=== PATIENT | female | born 1995 ===

== ENCOUNTER 2019-11-07 11:38 | Emergency (ER) | payer OTHER ==
[~2019-11-07] VITALS: Ht 157.5 cm; Wt 77.1 kg
[2019-11-07 12:46] LABS: Influenza A Negative (NEGATIVE); Influenza B Negative (NEGATIVE)
[2019-11-07] MEDS ORDERED: METF500 (13:22)
[2019-11-07] MEDS ORDERED: GABA300 (13:22)
[2019-11-07] MEDS ORDERED: Tamiflu75 MG PO (13:26)
== END 2019-11-07 13:29 | disposition home or self-care (01) ==
LOC: ER 11:38
PROVIDERS: Physician Assistant
DX: R05 Cough (principal); E11.9 Type 2 diabetes mellitus without complications
CPT/HCPCS: 87804; 99283

== ENCOUNTER 2020-07-08 18:52 | Inpatient (IN) | payer OTHER ==
[~2020-07-08] VITALS: Ht 157.5 cm; Wt 96.1 kg
[~2020-07-08 18:52] MED LIST: BASAGLAR K100 UNIT/2 SC; CEFP200 PO; GABA300; METF500; METF500 PO; Tamiflu75 MG PO
[2020-07-08 19:43] LABS: BASOPHILS ABSOLUTE AUTO 0.09 K/mm3 (0.00-0.23); BASOPHILS PERCENT AUTO 1 % (0-2); EOSINOPHILS ABSOLUTE AUTO 0.15 K/mm3 (0.00-0.68); EOSINOPHILS PERCENT AUTO 1 % (0-6); Hematocrit 39.2 % (33.0-51.0); Hemoglobin 14.7 g/dL (11.5-16.0); IMMATURE GRAN ABSOLUTE AUTO 0.05 K/mm3 (0.00-0.10); IMMATURE GRAN PERCENT AUTO 0 % (0-1); LYMPHOCYTES PERCENT AUTO 27 % (21-46); MONOCYTES ABSOLUTE AUTO 0.85 K/mm3 (0.16-1.47); MONOCYTES PERCENT AUTO 5 % (4-13); Mean Corpuscular HGB 32.1 pg (26.0-34.0); Mean Corpuscular HGB Conc 37.5 g/dL (31.5-36.5); Mean Corpuscular Volume 86 fL (80-100); Mean Platelet Volume 9.7 fL (9.1-12.4); NEUTROPHILS ABSOLUTE AUTO 10.69 K/mm3 (1.96-9.15); NEUTROPHILS PERCENT AUTO 66 % (41-73); Platelet Count 493 K/mm3 (150-400); RDW Coefficient Variation 12.6 % (11.7-14.2); Red Blood Cell Count 4.58 M/mm3 (3.80-5.20); White Blood Cell Count 16.13 K/mm3 (4.00-11.30)
[2020-07-08 22:14] LABS: Albumin, Blood 3.9 g/dL (3.4-5.0); Albumin/Globulin Ratio 0.8 (0.8-1.8); Alk Phos 56 U/L (50-136); Anion Gap 13 mmol/L (6-16); Aspartate Aminotrans (AST/SGOT 50 U/L (12-37); Blood Urea Nitrogen 9 mg/dL (8-24); Bun/Creatinine Ratio 20.1 (12.0-20.0); CO2, Blood 21 mmol/L (21-32); Chloride, Blood 98 mmol/L (98-108); Creatinine, Blood 0.45 mg/dL (0.40-1.00); Globulin, Blood 4.6 g/dL (2.2-4.0); Glomerular Filtration Rate >60 (60-); Glucose, Blood 470 mg/dL (70-99); Potassium, Blood 4.4 mmol/L (3.5-5.5); Sodium, Blood 132 mmol/L (136-145); Total Protein, Blood 8.5 g/dL (6.4-8.2)
[2020-07-08 22:21] LABS: Source, Urine Voided
[2020-07-08 22:23] LABS: Appearance, Urine Clear (Clear); Bilirubin, Urine Neg (Neg); Blood, Urine 1+ (Neg); Color, Urine Yellow (P-Yellow); Glucose Qualitative, Urine 4+ (Neg); Ketones, Urine Neg (Neg); Leukocyte Esterase, Urine Neg (Neg); Nitrite, Urine Neg (Neg); Protein, Urine 2+ (Neg); Urobilinogen, Urine NORM (Normal)
[2020-07-08 22:29] LABS: Bacteria Many /hpf; Red Blood Cells, Urine 0-2 /hpf (0-2); Squamous Epithelial Cells Few /hpf (Few); White Blood Cells, Urine 0-2 /hpf (0-5)
[2020-07-08 22:36] LABS: Alanine Aminotransfer (ALT/SGP 60 U/L (12-78); Bilirubin, Total 0.4 mg/dL (0.1-1.0)
--- NOTE | 2020-07-09 01:00 | NUR ---
ADMISSION NOTE RECEIVED HAND OFF FROM Jewell DIEZ RN USING SBAR. TRANSPORTED TO ROOM 226 VIA STRETCHER. TRANSFERED SELF TO BED WITH STANDBY ASSIST. AAO X3, [place], FOLLOWS ALL COMMANDS. ORIENTED TO ROOM, CALL SYSTEM, AND POC, VOICES UNDERSTANDING. INSTRUCTED THAT SHE IS NPO AT THIS TIME. ORAL CARE SUPLIES PROVIDED TO HER. RESPIRATIONS EVEN AND UNLABOERED ON ROOM AIR. LUNG SOUNDS CLEAR BILATERALLY. ABDOMEN SOFT AND NONDISTENDED. BOWEL SOUNDS PRESENT IN ALL QUADS. LEFT AC 20G SL PIV IS PATENT, FLUSHING WITH EASE. NS STARTED AT 75ML/HR, TOLERATING WELL. C/O PAIN OF 5/10 AFTER ARRIVAL, STATES PAIN MEDS IN ER WERE EFFECTIVE, BUT DIDN'T LAST LONG. GIVEN DILAUDID 1MG SIVP, TOLERATED WELL, REPORTS CURRENT PAIN LEVEL AT 2/10. INSTRUCTED TO CALL FOR ASSISTANCE OVER THE NEXT 30MIN IF NEEDED TO GET OOB FOR SAFETY, VOICES UNDERSTANDING. DENIES PAIN DISCOMFORT, OR FURTHER NEEDS AT THIS TIME. ASMISSION ASSESSMENT IN PROGRESS. SAFETY MEAURES IN PLACE. WILL CONTINUE TO MONITOR.
[2020-07-09 04:23] LABS: BASOPHILS ABSOLUTE AUTO 0.07 K/mm3 (0.00-0.23); BASOPHILS PERCENT AUTO 1 % (0-2); EOSINOPHILS ABSOLUTE AUTO 0.17 K/mm3 (0.00-0.68); EOSINOPHILS PERCENT AUTO 1 % (0-6); Hemoglobin 12.7 g/dL (11.5-16.0); IMMATURE GRAN ABSOLUTE AUTO 0.03 K/mm3 (0.00-0.10); IMMATURE GRAN PERCENT AUTO 0 % (0-1); LYMPHOCYTES ABSOLUTE AUTO 4.92 K/mm3 (0.84-5.20); LYMPHOCYTES PERCENT AUTO 32 % (21-46); MONOCYTES ABSOLUTE AUTO 0.84 K/mm3 (0.16-1.47); MONOCYTES PERCENT AUTO 5 % (4-13); Mean Corpuscular HGB 30.5 pg (26.0-34.0); Mean Corpuscular HGB Conc 35.3 g/dL (31.5-36.5); Mean Corpuscular Volume 87 fL (80-100); Mean Platelet Volume 9.3 fL (9.1-12.4); NEUTROPHILS ABSOLUTE AUTO 9.51 K/mm3 (1.96-9.15); NEUTROPHILS PERCENT AUTO 61 % (41-73); Platelet Count 431 K/mm3 (150-400); RDW Coefficient Variation 12.4 % (11.7-14.2); RDW Standard Deviation 39.2 fL (35.1-46.3); Red Blood Cell Count 4.16 M/mm3 (3.80-5.20); White Blood Cell Count 15.54 K/mm3 (4.00-11.30)
[2020-07-09 05:03] LABS: Alanine Aminotransfer (ALT/SGP 170 U/L (12-78); Albumin, Blood 3.1 g/dL (3.4-5.0); Albumin/Globulin Ratio 0.4 (0.8-1.8); Alk Phos 46 U/L (50-136); Anion Gap 8 mmol/L (6-16); Bilirubin, Total 0.7 mg/dL (0.1-1.0); Blood Urea Nitrogen 6 mg/dL (8-24); Bun/Creatinine Ratio 19.7 (12.0-20.0); CO2, Blood 24 mmol/L (21-32); Calcium, Blood 8.4 mg/dL (8.5-10.1); Chloride, Blood 97 mmol/L (98-108); Creatinine, Blood 0.31 mg/dL (0.40-1.00); Globulin, Blood 7.6 g/dL (2.2-4.0); Glomerular Filtration Rate >60 (60-); Glucose, Blood 356 mg/dL (70-99); Potassium, Blood 4.2 mmol/L (3.5-5.5); Sodium, Blood 129 mmol/L (136-145)
[2020-07-09 05:04] LABS: Total Protein, Blood 10.7 g/dL (6.4-8.2)
[2020-07-09 05:14] LABS: Aspartate Aminotrans (AST/SGOT 106 U/L (12-37)
--- NOTE | 2020-07-09 05:34 | NUR ---
SHIFT SUMMARY HAS NOT RESTED D/T WORRY ABOUT SURGERY AND DIABETES CARE OUTSIDE OF HER NORMAL. NURSING REITERATED CARE PLACE AND THAT WE WOULD BE WATCHING HER GLUCOSE LEVELS CLOSELY ESPECIALLY SINCE SHE IS CURRENTLY NPO. CONTACTE DR ORTIZ FOR DIABETIC MANAGEMENT ORDERS AND WAS ORDERED TO PLACE A HOSPITALIST CONSULT. CONSULT CALLED TO DR. SALCEDO WHO STATED THAT SHE WOULD COME SEE PT. NO FURTHER CHANGES NOTED TO PT SINCE ADMIT. DENIES PAIN, DISCOMFORT, OR FURTHER NEEDS AT THIS TIME. SAFETY MEASURES IN PLACE. WILL CONTINUE TO MONITOR AND GIVE HAND OFF TO ONCOMING SHIFT USING SBAR DURING BEDSIDE REPORT.
--- NOTE | 2020-07-09 09:49 | NUR ---
PT TO OR
--- NOTE | 2020-07-09 10:04 | NUR ---
INTO SDS VIA GURNERY FROM SURG FLOOR. History, Chart, Medications and Allergies reviewed before start of procedure.Patient confirms NPO status and agrees with scheduled surgery. Surgical site prepped with 2% Chlorhexidine cloth wipe. Lungs clear T/O to Auscultation.
--- NOTE | 2020-07-09 12:05 | NUR ---
PT ABLE TO FOLLOW COMMANDS, TAKE DEEP BREATHS. PT PLACED ON NC AT 4L. BIOX AT 95%.
--- NOTE | 2020-07-09 15:26 | NUR ---
SUMMARY S/P LAP ROHINI THIS SHIFT. MEDICATED PT PER ORDERS FOR 04/17 PAIN WHICH BROUGHT DOWN TO 02/15. PT AMBULATED TO RESTROOM AND VOIDED. NOW BACK TO BED. SLOWLY EATING LUNCH. VSS. TITRATED PT OFF TO . COVERED CBG OF 305 AT LUNCH PER NANCIE. S.O. AT BEDSIDE. CALL LIGHT IN REACH.
--- NOTE | 2020-07-09 16:03 | NUR ---
ASSUMED PT CARE AT THIS TIME
[2020-07-10 04:07] LABS: BASOPHILS ABSOLUTE AUTO 0.03 K/mm3 (0.00-0.23); BASOPHILS PERCENT AUTO 0 % (0-2); EOSINOPHILS PERCENT AUTO 0 % (0-6); Hematocrit 33.9 % (33.0-51.0); Hemoglobin 11.6 g/dL (11.5-16.0); IMMATURE GRAN ABSOLUTE AUTO 0.07 K/mm3 (0.00-0.10); IMMATURE GRAN PERCENT AUTO 0 % (0-1); LYMPHOCYTES ABSOLUTE AUTO 2.11 K/mm3 (0.84-5.20); LYMPHOCYTES PERCENT AUTO 13 % (21-46); MONOCYTES ABSOLUTE AUTO 0.78 K/mm3 (0.16-1.47); MONOCYTES PERCENT AUTO 5 % (4-13); Mean Corpuscular HGB 30.1 pg (26.0-34.0); Mean Corpuscular HGB Conc 34.2 g/dL (31.5-36.5); Mean Corpuscular Volume 88 fL (80-100); Mean Platelet Volume 9.2 fL (9.1-12.4); NEUTROPHILS ABSOLUTE AUTO 13.67 K/mm3 (1.96-9.15); NEUTROPHILS PERCENT AUTO 82 % (41-73); Platelet Count 346 K/mm3 (150-400); RDW Coefficient Variation 12.6 % (11.7-14.2); RDW Standard Deviation 40.6 fL (35.1-46.3); Red Blood Cell Count 3.85 M/mm3 (3.80-5.20); White Blood Cell Count 16.66 K/mm3 (4.00-11.30)
[2020-07-10 04:29] LABS: Alanine Aminotransfer (ALT/SGP 103 U/L (12-78); Albumin/Globulin Ratio 0.7 (0.8-1.8); Alk Phos 50 U/L (50-136); Anion Gap 7 mmol/L (6-16); Aspartate Aminotrans (AST/SGOT 111 U/L (12-37); Bilirubin, Total 0.5 mg/dL (0.1-1.0); Blood Urea Nitrogen 9 mg/dL (8-24); Bun/Creatinine Ratio 17.3 (12.0-20.0); CO2, Blood 25 mmol/L (21-32); Calcium, Blood 8.7 mg/dL (8.5-10.1); Chloride, Blood 103 mmol/L (98-108); Creatinine, Blood 0.52 mg/dL (0.40-1.00); Globulin, Blood 4.5 g/dL (2.2-4.0); Glomerular Filtration Rate >60 (60-); Glucose, Blood 259 mg/dL (70-99); Potassium, Blood 3.9 mmol/L (3.5-5.5); Sodium, Blood 135 mmol/L (136-145); Total Protein, Blood 7.5 g/dL (6.4-8.2)
--- NOTE | 2020-07-10 06:33 | NUR ---
POD 1 S/P LAP ROHINI. PT VSS T/O NIGHT. DRESSINGS CDI, SITES SOFT TO PALP. PT HAD MILD NAUSEA REALY IN NIGHT, REPORTS RESOLVED THIS AM. PT ELLA REG PO, STATES NO FLATUS YET, IS VOIDING URINE W/O DIFFICULTY. PAIN MGD W/TORADOL AND 1 PERCOCET W/REP RELIEF. CBG TRENDING DOWN. IVF CONT PER ORDERS. PT AMB INDEP IN ROOM, ELLA WELL.
[2020-07-10] MEDS ORDERED: OXYC5 PO (10:29)
[2020-07-10] MEDS ORDERED: ONDA4 PO (10:29)
[2020-07-10] MEDS ORDERED: KEFLEX500 MG PO (10:44)
--- NOTE | 2020-07-10 11:05 | NUR ---
DISCHARGE NOTE: WENT OVER THE DISCHARGE INSTRUCTIONS WITH THE PATIENT. SHE VERBALIZED HER UNDERSTANDING. GAVE HER THE ZOFRAN AND OXYCODONE PERSCRIPTIONS IN THE PACKET. HER VITALS WERE STABLE, ON ROOM AIR, AND WAS ABLE TO WALK OUT OF THE BUILDING WITH HER S/O. SHE HAD ALL OF HER PERSONAL BELONGINGS WITH HER. IV D/C'D. LEFT WITH S/O.
--- NOTE | 2020-07-10 13:24 | NUR ---
Pt. is doing well and may go home today , prayed for her .
== END 2020-07-10 11:00 | disposition home or self-care (01) | DRG 418 ==
LOC: ER 18:52 → SURS 18:53
PROVIDERS: Emergency Medicine; Internal Medicine; Physician Assistant; ADMIT Surgery
PROC: BF131ZZ Fluoroscopy of Gallbladder and Bile Ducts using Low Osmolar Contrast (ICD-10-PCS; 2020-07-09)
PROC: 0FT44ZZ Resection of Gallbladder, Percutaneous Endoscopic Approach (ICD-10-PCS; principal; 2020-07-09 10:45)
DX: K85.10 Biliary acute pancreatitis without necrosis or infection (principal); E87.1 Hypo-osmolality and hyponatremia; N39.0 Urinary tract infection, site not specified; R65.10 Systemic inflammatory response syndrome (SIRS) of non-infectious origin without acute organ dysfunction; Z20.828 Contact with and (suspected) exposure to other viral communicable diseases; Z79.4 Long term (current) use of insulin; E11.65 Type 2 diabetes mellitus with hyperglycemia; E66.9 Obesity, unspecified; Z68.34 Body mass index [BMI] 34.0-34.9, adult; B95.1 Streptococcus, group B, as the cause of diseases classified elsewhere
CPT/HCPCS: 36415; 74300; 76705; 80053; 81001; 81025; 82947; 83690; 85025; 87077; 87086; 87147; 87186; 88304; 96374-59; 96375; 99285-25; A9270-GY; C1729; C1894; J0690; J0696; J1100; J1170; J1815; J1885; J2250; J2405; J2543; J2704; J2710; J3010; J7030; J7120; U0002

== ENCOUNTER 2020-08-03 17:09 | Inpatient (IN) | payer OTHER ==
[~2020-08-03] VITALS: Ht 157.5 cm; Wt 74.3 kg
[~2020-08-03 17:09] MED LIST changes: +KEFLEX500 MG PO; +ONDA4 PO; +OXYC5 PO
[2020-08-03 17:40] LABS: BASOPHILS ABSOLUTE AUTO 0.07 K/mm3 (0.00-0.23); BASOPHILS PERCENT AUTO 1 % (0-2); EOSINOPHILS ABSOLUTE AUTO 0.24 K/mm3 (0.00-0.68); EOSINOPHILS PERCENT AUTO 2 % (0-6); Hemoglobin 14.3 g/dL (11.5-16.0); IMMATURE GRAN ABSOLUTE AUTO 0.05 K/mm3 (0.00-0.10); IMMATURE GRAN PERCENT AUTO 0 % (0-1); LYMPHOCYTES ABSOLUTE AUTO 4.14 K/mm3 (0.84-5.20); LYMPHOCYTES PERCENT AUTO 27 % (21-46); MONOCYTES ABSOLUTE AUTO 0.81 K/mm3 (0.16-1.47); MONOCYTES PERCENT AUTO 5 % (4-13); Mean Corpuscular HGB 31.1 pg (26.0-34.0); Mean Corpuscular HGB Conc 35.8 g/dL (31.5-36.5); Mean Corpuscular Volume 87 fL (80-100); Mean Platelet Volume 9.5 fL (9.1-12.4); NEUTROPHILS ABSOLUTE AUTO 9.84 K/mm3 (1.96-9.15); NEUTROPHILS PERCENT AUTO 65 % (41-73); Platelet Count 423 K/mm3 (150-400); RDW Coefficient Variation 11.9 % (11.7-14.2); RDW Standard Deviation 38.5 fL (35.1-46.3); White Blood Cell Count 15.15 K/mm3 (4.00-11.30)
[2020-08-03] MEDS ORDERED: GABA300 PO (18:12)
[2020-08-03] MEDS ORDERED: BASAGLAR K100 UNIT/5 SC (18:12)
[2020-08-03] MEDS ORDERED: METF500C PO (18:13)
[2020-08-03 18:24] LABS: Alanine Aminotransfer (ALT/SGP 90 U/L (12-78); Albumin, Blood 3.5 g/dL (3.4-5.0); Albumin/Globulin Ratio 0.7 (0.8-1.8); Alk Phos 67 U/L (50-136); Anion Gap 10 mmol/L (6-16); Aspartate Aminotrans (AST/SGOT 77 U/L (12-37); Bilirubin, Total 0.5 mg/dL (0.1-1.0); Blood Urea Nitrogen 8 mg/dL (8-24); CO2, Blood 22 mmol/L (21-32); Calcium, Blood 8.6 mg/dL (8.5-10.1); Chloride, Blood 99 mmol/L (98-108); Creatinine, Blood 0.33 mg/dL (0.40-1.00); Globulin, Blood 5.3 g/dL (2.2-4.0); Glomerular Filtration Rate >60 (60-); Glucose, Blood 458 mg/dL (70-99); Potassium, Blood 4.2 mmol/L (3.5-5.5); Sodium, Blood 131 mmol/L (136-145); Total Protein, Blood 8.8 g/dL (6.4-8.2)
[2020-08-03 18:46] LABS: Source, Urine Clean Catch
[2020-08-03 19:11] LABS: Appearance, Urine Clear (Clear); Bilirubin, Urine Neg (Neg); Blood, Urine Neg (Neg); Color, Urine Yellow (P-Yellow); Glucose Qualitative, Urine 4+ (Neg); Ketones, Urine Neg (Neg); Leukocyte Esterase, Urine Neg (Neg); Nitrite, Urine Neg (Neg); Protein, Urine 2+ (Neg); Urobilinogen, Urine NORM (Normal)
[2020-08-03 19:24] LABS: Bacteria Few /hpf; Red Blood Cells, Urine 0-2 /hpf (0-2); Squamous Epithelial Cells Few /hpf (Few); White Blood Cells, Urine 0-2 /hpf (0-5)
--- NOTE | 2020-08-04 03:46 | NUR ---
24 YR OLD FEMALE ADMITTED TO FLOOR FROM THE ED EARLIER WITH DX OF ACUTE PANCREATITIS POST ROHINI ABOUT 3 WEEKS AGO. ACCU CHECKS Q 4 HRS TO MONITOR BLOOD SUGAR LEVELS. IVF OF NS CONTINUES. NPO. DILAUDID FOR PAIN AND ZOFRAN FOR NAUSEA/EMESIS - SEE MAR FOR DETAILS. CALL LIGHT IN REACH
[2020-08-04 04:45] LABS: BASOPHILS ABSOLUTE AUTO 0.05 K/mm3 (0.00-0.23); BASOPHILS PERCENT AUTO 0 % (0-2); EOSINOPHILS PERCENT AUTO 0 % (0-6); Hemoglobin 14.2 g/dL (11.5-16.0); IMMATURE GRAN ABSOLUTE AUTO 0.08 K/mm3 (0.00-0.10); IMMATURE GRAN PERCENT AUTO 0 % (0-1); LYMPHOCYTES ABSOLUTE AUTO 1.45 K/mm3 (0.84-5.20); LYMPHOCYTES PERCENT AUTO 7 % (21-46); MONOCYTES ABSOLUTE AUTO 1.14 K/mm3 (0.16-1.47); MONOCYTES PERCENT AUTO 6 % (4-13); Mean Corpuscular HGB 29.9 pg (26.0-34.0); Mean Corpuscular HGB Conc 33.8 g/dL (31.5-36.5); Mean Corpuscular Volume 88 fL (80-100); Mean Platelet Volume 9.6 fL (9.1-12.4); NEUTROPHILS ABSOLUTE AUTO 16.92 K/mm3 (1.96-9.15); NEUTROPHILS PERCENT AUTO 86 % (41-73); Platelet Count 431 K/mm3 (150-400); RDW Coefficient Variation 12.3 % (11.7-14.2); RDW Standard Deviation 40.1 fL (35.1-46.3); Red Blood Cell Count 4.75 M/mm3 (3.80-5.20); White Blood Cell Count 19.64 K/mm3 (4.00-11.30)
--- NOTE | 2020-08-04 05:00 | NUR ---
IV SITE HAD INFILTRATED ABOUT THE TIME PT RECEIVED DILAUDID. PAIN CONTINUED, PT VOICED MED NOT EFFECTIVE ALSO CBG 416. ORDER WAS GIVE 12 UNITS HUMULIN INSULIN AND CALL MD. INSULIN GIVEN AND MD NOTIFIED OF BOTH (PAIN AND INSULIN). MD ORDERED TO GIVE ANOTHER ONE TIME DOSE OF DILAUDID 1 MF IV AND TO GIVE THE LANTUS INSULIN DOSE ORDERED AT 2100. DILAUDID GIVEN, PT VOICED PAIN RELIEF. IVF OF NS RESTARTED, CALL LIGHT IN REACH
[2020-08-04 05:11] LABS: Alanine Aminotransfer (ALT/SGP 98 U/L (12-78); Albumin, Blood 3.4 g/dL (3.4-5.0); Albumin/Globulin Ratio 0.8 (0.8-1.8); Alk Phos 59 U/L (50-136); Anion Gap 9 mmol/L (6-16); Aspartate Aminotrans (AST/SGOT 52 U/L (12-37); Bilirubin, Total 0.6 mg/dL (0.1-1.0); Blood Urea Nitrogen 7 mg/dL (8-24); Bun/Creatinine Ratio 14.1 (12.0-20.0); CO2, Blood 23 mmol/L (21-32); Calcium, Blood 7.4 mg/dL (8.5-10.1); Chloride, Blood 102 mmol/L (98-108); Globulin, Blood 4.2 g/dL (2.2-4.0); Glomerular Filtration Rate >60 (60-); Glucose, Blood 365 mg/dL (70-99); Potassium, Blood 4.2 mmol/L (3.5-5.5); Sodium, Blood 134 mmol/L (136-145); Total Protein, Blood 7.6 g/dL (6.4-8.2)
[2020-08-04 12:54] LABS: Triglycerides 1785 mg/dL (30-140)
--- NOTE | 2020-08-04 15:47 | NUR ---
SHIFT SUMMARY PT IS A/O X 4. SHE HAS ONGOING ABDOMINAL PAIN AND HAS BEEN MEDICATED ORDERED. SHE ALSO HAS HAD NAUSEA THROUGHOUT THE DAY AND HAS BEEN MEDICATED ORDERED. CBGS HAVE BEEN CHECKED Q4 AND INSULIN HAS BEEN GIVEN PER SLIDING SCALE. MRI WAS COMPLETED THIS MORNING PER THE DOCTOR AND PT IS AWAITING THE RESULTS. HER S.O. HAS BEEN AT THE BEDSIDE ALL DAY WITH HER. PT IS UP TO THE BATHROOM IND. SHE IS ABLE TO MAKE HER NEEDS KNOWN AND CALLS FREQUENTLY FOR ASSISTANCE. SHE HAS HER CALL LIGHT IN REACH.
--- NOTE | 2020-08-05 04:41 | NUR ---
Pt alertness: When doing morning vs I went and pushed send and then I noticed it said lethargic which was wrong. Pt was very alert. View score only be 4 not 5 and RN was aware.
--- NOTE | 2020-08-05 06:37 | NUR ---
BOULEVARD GLASSWARE REPLACER SUMMARY Patient awake most of night. Quite painful in upper quadrants. Tolerating NS running continuously at 200 ml/hr. Tearful multiple times with pain. 1mg Dilaudid worked effectively given every 2-3 hours. Very pleasant and cooperative with care
--- NOTE | 2020-08-05 08:43 | NUR ---
REC'D REPORT FROM GILBERTO NARVAEZ ON MEDICAL AND WILL BE ASSUMING CARE OF PT ONCE THEY ARRIVE TO UNIT. WILL START INSULIN GTT ONCE SHE ARRIVES.
--- NOTE | 2020-08-05 08:50 | NUR ---
PT TRANSFERRED FROM MEDICAL FLOOR VIA W/C FOR INSULIN GTT TO BRING DOWN TRIGLYCERIDES. PT 10/ PAIN IN THE LT UQ UPON ARRIVAL TO UNIT. TX'D PER ORDERS WITH DILAUDID IV. ALERT + ORIENTED X3. PT ABLE TO AMBULATE SELF, SLOWLY WITH STEADY GAIT. LUNGS ARE CLEAR T/O BILATERALLY. SP02 >90% ON RA. HR REGULAR, ST- 110-120'S. INSULIN GTT STARTED UPON ARRIVAL. WILL CONTINUE TO FOLLOW CBG'S Q1 HR WHILE ON INSULIN GTT. ABD SLIGHT DISTENDED. VERY TENDER IN LT UQ WITH RADIATION TO RUQ AT TIMES. PT REMAINS NPO, EXCEPT SM AMT OF ICE CHIPS.
--- NOTE | 2020-08-05 08:51 | NUR ---
DR CAAL GAVE ORDERS TO TRANSFER PT TO ICU. THE CHARGE NURSE WAS NOTTIFIED. THE PT WAS NOTIFIED AND AGREED TO PLAN. REPORT WAS CALLED TO HARBOR ENGINEER, SOLANGE. THE PT'S S.O. PACKED PT'S BELONGINGS AND BROUGHT THEM TO THE ICU.
--- NOTE | 2020-08-05 09:36 | NUR ---
PLACED PT ON 2L 02 VIA N/C, PT'S SATS 88-89% ON RA AFTER MEDICATING WITH DILAUDID. DISCUSSED DEEP BREATHING SEVERAL TIMES WITH PT/PTS FIANCE. HOWEVER, SP02 REMAINED >90%.
[2020-08-05 11:20] LABS: Triglycerides 568 mg/dL (30-140)
--- NOTE | 2020-08-05 14:04 | NUR ---
PT UPDATE: PT REMAINS MOSTLY UNCHANGED. CONTINUES TO NEED DILAUDID 1MG Q2HR FOR ONGOING LUQ ABD PAIN AND ZOFRAN TO CONTROL NAUSEA. PT ABLE TO CALL APPROPRIATELY FOR NEEDS AND CALL LIGHT WITHIN REACH.
--- NOTE | 2020-08-05 15:36 | NUR ---
CALLED DR CAAL, DILAUDID IV HAS NOT BEEN LASTING THE FULL 2 HRS. WILL TRY DILAUDID TIME STUDY CLERK FOR BETTER PAIN CONTROL/MANAGEMENT. WATCH FOR SEDATION. WILL START ONCE THIS RN RECEIVES DILAUDID FROM PHARMACY.
--- NOTE | 2020-08-05 17:21 | NUR ---
DR GLORIA IN TO REASSESS PT AND DIURETIC EFFECT OF LASIX. WILL KEEP PT IN ICU OVERNIGHT.
--- NOTE | 2020-08-05 17:24 | NUR ---
CALLED DR JIMENEZ TO INFORM HIM THAT PT'S IS AT THE BEDSIDE. HE WANTED TO SPEAK WITH HER ABOUT THE PT'S TX OPTIONS.
--- NOTE | 2020-08-05 19:00 | NUR ---
SHIFT SUMMARY: PT HAS CONTINUED ABD PAIN IN THE LUQ R/T PANCREATITIS, HOWEVER, IT IS MUCH BETTER MANAGED ON THE DILAUDID 0.5MG/HR PER BASAL GARAGE WORKER. PAIN IS NOW MORE CONSISTENTLY 4-5/10 COMPARED TO 8-08/17. PT ABLE TO MOVE SELF IN BED. THIS DOES INCREASE PAIN AND NAUSEA AT THESE TIMES. PT HAS HAD TO BE TX'D WITH ZOFRAN T/O SHIFT, WHICH HAS PROVEN TO BE HELPFUL IN REDUCING NAUSEA. LUNGS ARE CLEAR T/O BILATERALLY. PT HAS HAD TO HAVE 2L 02 PLACED AT TIMES SP02 WILL DECREASE TO 88% RANGE WHEN SLEEPING. HR REGULAR, ST 120'S RANGE. ABD SLIGHTY DISTENDED, SHARP/STABBING PAIN IN LT UQ T/O SHIFT, WITH GARAGE WORKER NOTED. PT OOB TO VOID IN TOILET AND SBA TO ASSIST WITH VITAL LINES. PT WITH LARGE IMPROVEMENT IN TRIGLYERIDE LEVEL THIS SHIFT AND WILL BE RECHECKED DURING NOC SHIFT. LIPASE/CBC/RENAL PANEL DUE IN AM. J
--- NOTE | 2020-08-05 19:39 | NUR ---
REPORTED OFF TO GILBERTO Barber WHOM AE NOW ASSUMING CARE OF THIS PT.
--- NOTE | 2020-08-05 19:40 | NUR ---
PT A&OX4. HEENT-NORMOCEPHALIC. LSCTA, ON 2LPM O2 NC WHILE SLEEPING. ABD SOFT, SLIGHTLY DISTENDED WITH SHARP PAIN IN LUQ. MODERATE PAIN RADIATES T/O UPPER QUADRANT. ABD PAIN IS CONSISTENTLY AROUND A 5-6 WITH THE ICE PLATFORM SUPERVISOR DILAUDID. PT REPORTS INCREASE IN PAIN WHEN UP TO THE COMMODE. BT'S HYPOACTIVE. PT ABLE TO VOID c ASSISTANCE TO THE BEDSIDE COMMODE. INSULIN GTT AT GOAL RATE OF 0.1. FLUIDS WILL BE TITRATED TO MAINTAIN CBG <200.
[2020-08-05 22:47] LABS: Triglycerides 373 mg/dL (30-140)
--- NOTE | 2020-08-06 03:55 | NUR ---
UPDATE AUDIBLE CRYING/ MOANING COMING FROM PTS ROOM. PT WRITHING IN BED, TACHYPNEIC, TACHYCARDIC, C/O SEVERE LUQ PAIN, 10/10. ATTEMPTED TO HELP PT VIA DISTRACTION AND REPOSITIONING WITH NO RESOLVE. PT MEDICATED c PRESCRIBED PAIN MEDICATIONS, PAIN DIMINISHED TO A 3/10.
[2020-08-06 04:00] LABS: Hematocrit 37.6 % (33.0-51.0); Hemoglobin 12.5 g/dL (11.5-16.0); Mean Corpuscular HGB 29.8 pg (26.0-34.0); Mean Corpuscular HGB Conc 33.2 g/dL (31.5-36.5); Mean Corpuscular Volume 90 fL (80-100); Mean Platelet Volume 9.6 fL (9.1-12.4); Platelet Count 321 K/mm3 (150-400); RDW Coefficient Variation 12.8 % (11.7-14.2); RDW Standard Deviation 42.3 fL (35.1-46.3); White Blood Cell Count 18.23 K/mm3 (4.00-11.30)
[2020-08-06 04:25] LABS: Albumin, Blood 2.2 g/dL (3.4-5.0); Anion Gap 7 mmol/L (6-16); Blood Urea Nitrogen 7 mg/dL (8-24); Bun/Creatinine Ratio 13.2 (12.0-20.0); CO2, Blood 23 mmol/L (21-32); Calcium, Blood 6.5 mg/dL (8.5-10.1); Chloride, Blood 104 mmol/L (98-108); Creatinine, Blood 0.53 mg/dL (0.40-1.00); Glomerular Filtration Rate >60 (60-); Glucose, Blood 143 mg/dL (70-99); Potassium, Blood 3.1 mmol/L (3.5-5.5); Sodium, Blood 134 mmol/L (136-145)
[2020-08-06 04:36] LABS: Phosphorus, Blood 0.6 mg/dL (2.5-4.9)
[2020-08-06 04:50] LABS: Triglycerides 357 mg/dL (30-140)
[2020-08-06 05:21] LABS: BAND PERCENT MAN 19 % (0-8); BASOPHILS PERCENT MAN 0 % (0-2); EOSINOPHILS PERCENT MAN 0 % (0-6); LYMPHOCYTES ABSOLUTE MAN 2.18 K/mm3 (0.84-5.20); LYMPHOCYTES PERCENT MAN 12 % (21-46); MONOCYTES ABSOLUTE MAN 1.64 K/mm3 (0.16-1.47); MONOCYTES PERCENT MAN 9 % (4-13); SEG NEUTROPHILS PERCENT MAN 60 % (41-73); TOTAL CELLS COUNTED 100
--- NOTE | 2020-08-06 06:18 | NUR ---
SHIFT SUMMARY PTS CBG VARIED FROM 105-152 T/O THE SHIFT. FLUIDS AND INSULIN TITRATED PER DIRECTIONS, SEE FLOWSHEET. PHOSPH AND K+ LOW c MORNING LABS. DR. SALCEDO NOTIFIED, SEE ORDERS. PTS PAIN REMAINED UNDER CONTROL MOST OF THE NIGHT, REQUIRED ONE EXTRA DOSE OF PRN PAIN MEDICINE. PT ASSISTED T/O THE EVENING TO THE BEDSIDE COMMODE.
--- NOTE | 2020-08-06 08:42 | NUR ---
DR CAAL IN TO ASSESS PT. DISCUSSED CONTINUED UNCONTROLLED PAIN/NAUSEA DESPITE LABS BEING MUCH IMPROVED THIS AM. PT REPORTS SHE TRYIED TO URINATE AND COULDN'T AND THAT ATTEMPTING CAUSED BURNING. WILL CHECK UA WHEN PT ABLE.
--- NOTE | 2020-08-06 10:12 | NUR ---
PT UPDATE: PT C/O CONT NAUSEA DESPITE ZOFRAN THIS AM. PT MEDICATED W/PHENERGAN PER ORDERS. SUBSTITUTE CROSSING GUARD CHANGED TO SUBSTITUTE CROSSING GUARD DOSING ONLY AT 0.2MG/30 MINUTES.
--- NOTE | 2020-08-06 11:35 | NUR ---
PT UPDATE: PT REST/SLEEPS WHEN UNDISTURBED. REPORTS CONTINUED PAIN IN RT UQ 5-04/17. PT CHANGED TO DIRECTOR ON AIR DOSING ONLY AND NEEDS REMINDERS TO USE DIRECTOR ON AIR BUTTON WHEN HURTING. NO C/O NAUSEA SINCE ADMIN PHENERGAN IV. PT REMAINS SOMEWHAT DROWSY THROUGH AM, BUT EASY TO AWAKEN TO VERBAL STIMULI. CBG'S CHANGED TO AC/HS WITH LOW S/S INSULIN. IVF'S CHANGED TO NS @ 100ML/HR.
--- NOTE | 2020-08-06 12:38 | NUR ---
VANDANA FROM DIETARY IN TO EDUCATE PT ON ADA DIET.
--- NOTE | 2020-08-06 13:05 | NUR ---
PT BLADDER SCANNED AND FOUND TO HAVE 413 ML OF URINE IN BLADDER. PT ASSISTED OUT OF BED TO ATTEMPT TO VOID. WILL OBTAIN UA IF POSSIBLE.
[2020-08-06 13:23] LABS: Source, Urine Clean Catch
[2020-08-06 13:31] LABS: Bilirubin, Urine Neg (Neg); Blood, Urine 2+ (Neg); Glucose Qualitative, Urine 4+ (Neg); Ketones, Urine 3+ (Neg); Leukocyte Esterase, Urine 1+ (Neg); Nitrite, Urine Neg (Neg); Protein, Urine 3+ (Neg); Urobilinogen, Urine NORM (Normal)
[2020-08-06 13:38] LABS: Appearance, Urine Hazy (Clear); Color, Urine Yellow (P-Yellow)
[2020-08-06 13:39] LABS: Bacteria Many /hpf; Squamous Epithelial Cells Mod /hpf (Few)
--- NOTE | 2020-08-06 15:14 | NUR ---
CALLED DR CAAL RE: PT'S UA RESULTS. SEE NEW ORDERS. WILL START ABX, PT IS SYMPTOMATIC WITH CONTINUED BURNING AND INITIALLY SOME RETENTION TODAY. HOWEVER, PT ABLE TO GET UP AND VOID WHEN THIS RN ASKED PT TO ATTEMPT.
--- NOTE | 2020-08-06 15:29 | NUR ---
PT UPDATE: PT REPORTS CONTINUED PAIN 5/10 W/ OCASSIONAL USE OF DILAUDID BATTALION CHIEF. PT OVERALL APPEARS MORE COMFORTABLE AND MOVING AROUND MORE EASILY. PT GIVEN JELLO TO TRY AT THIS TIME.
--- NOTE | 2020-08-06 15:34 | NUR ---
Pt. is doing much better offered prayers
--- NOTE | 2020-08-06 18:05 | NUR ---
SHIFT SUMMARY: PT HAS SHOWN IMPROVEMENT T/O SHIFT. PAIN OVERALL BETTER AND PT WAS TRANSITIONED TO DILAUDID WITH ZINC MINER BLASTING DOSE ONLY. PT NEEDS ENCOURAGEMENT TO DO OWN ADL'S AND GET OOB. LUNGS ARE CLEAR T/O BILATERALLY WITH SP02 SATS >90% ON RA. PT INITIALLY NEEDED 2L 02 VIA N/C THIS AM, HOWEVER, ABLE TO BE WEANED OFF ONCE PT PLACED ON ZINC MINER BLASTING DOSING. HR REGULAR, ST 110-120'S RANGE. ABD ROUND/SOFT/TENDER IN ALL QUADS. PT C/O OF LT UQ PAIN. PT STARTED ON SM AMTS OF CLEAR LIQUIDS THIS SHIFT AND HAS TOLERATED WELL. PT WITH INTERMITTENT MILD NAUSEA THAT WAS TX X 1 THIS AM. UA SENT THIS SHIFT AND PT STARTED ON CEFTRIAXONE IVPB FOR POSSIBLE UTI. AWAITING PRELIMARY CX. NO BM THIS SHIFT. PT NOW SURGICAL STATUS AND WILL TNX WHEN A BED IS AVIALABLE.
--- NOTE | 2020-08-06 19:25 | NUR ---
REPORTED OFF TO YEIMY/GILBERTO ROSARIO AND IS ASSUMING CARE OF THIS PT.
--- NOTE | 2020-08-06 21:27 | NUR ---
DISCHARGE NOTE PT BEING TX TO RM 211. REPORT GIVEN TO GILBERTO BALDWIN. PT A&OX4. ABD TENDER UPON PALPATION TO LUQ. PAIN IS DESCRIBED MORE OF A "BURN" THAN THE STABBING PAIN FROM YESTERDAY. PAIN IS A 4/10. PT DENYING ANY N/V. ABLE TO TX TO W/C FOR TRANSFER.
--- NOTE | 2020-08-06 22:30 | NUR ---
RECEIVED HAND OFF FROM GILBERTO GAFFNEY IN ICU. TRANSPORTED TO ROOM 211 AT 2130 VIA WHEELCHAIR. TRANSFERED SELF TO BED WITH STANDBY ASSISTANCE, TOLERATED WELL. VSS, IN LINE WITH PREVIOUS VS THROUGHOUT THE DAY. AAO X4, [place], FOLLOWS ALL COMMANDS. ORIENTED TO ROOM, CALL SYSTEM, AND POC, VOICES UNDERSTANDING. LEFT AC PIV IS PATENT, INFUSING NS AT 100ML/HR. PHYSICAL THERAPY AID DILAUDID INFUSING PER MD ORDERS, BUTTON IN HAND. LOPID GIVEN PO PER EMAR. STANDBY ASSIST TO BATHROM NEEDED. CONTINENT OF BOWEL AND BLADDER. HEALED LAP SITES TO ABDOMEN NOTED. TELE TO BE PLACED PER MD ORDER. DENIES FURTHER NEEDS OR WANTS AT THIS TIME. SAFETY MEASURES IN PLACE. WILL CONTINUE TO MONITOR.
--- NOTE | 2020-08-06 22:58 | NUR ---
TELEMETRY PLACED, READING ST AT 129 PER ALISON SHETH. COOL WASHCLOTHES PLACED TO FOREHEAD AND NECK AND FAN PLACED ON TABLE AT BEDSIDE TO HELP COOL HER OFF. UNABLE TO LOG ONTO COMPUTER IN ROOM. ALL MEDS ENTERED MANUALLY INTO EMAR ON COMPUTER OUTSIDE ROOM.
--- NOTE | 2020-08-07 04:30 | NUR ---
SHIFT SUMMARY LYING IN SEMI FOWELRS WITH EYES CLOSED, VSS, NAD NOTED. AAO X4, [place], FOLLOWS ALL COMMANDS. LEFT AC PIV IS PATENT, INFUSING NS AT 100ML/HR. CALL PERSON DILAUDID INFUSING PER MD ORDERS, BUTTON IN HAND. STANDBY ASSIST TO BATHROM NEEDED. CONTINENT OF BOWEL AND BLADDER. HEALED LAP SITES TO ABDOMEN NOTED. TELE SHOWS ST 110'S TO 120'S. DENIES FURTHER NEEDS OR WANTS AT THIS TIME. SAFETY MEASURES IN PLACE. WILL CONTINUE TO MONITOR AND GIVE HAND OFF TO ONCOMING SHIFT USING SBAR.
--- NOTE | 2020-08-07 07:45 | NUR ---
pt rep pain 7/10 getting up to bathroom 6/10 laying in bed cont to have nausea w/o emesis
--- NOTE | 2020-08-07 09:19 | NUR ---
dr crawford by to see pt
--- NOTE | 2020-08-07 11:27 | NUR ---
Pt is in bed and doing much better offered prayers for her.
--- NOTE | 2020-08-07 12:16 | NUR ---
MEDS GIVEN SCHED PT DROWSY STATED SHE DID NOT SLEEP WELL LAST NIGHT
--- NOTE | 2020-08-07 14:03 | NUR ---
POPSICLE GIVEN PT STATED IT DID CAUSE SOME NAUSEA EARLIER ZOFRAN GIVEN
[2020-08-07 16:43] LABS: Albumin, Blood 2.1 g/dL (3.4-5.0); Anion Gap 10 mmol/L (6-16); Blood Urea Nitrogen 3 mg/dL (8-24); Bun/Creatinine Ratio 6.5 (12.0-20.0); CO2, Blood 23 mmol/L (21-32); Calcium, Blood 7.6 mg/dL (8.5-10.1); Chloride, Blood 102 mmol/L (98-108); Creatinine, Blood 0.46 mg/dL (0.40-1.00); Glomerular Filtration Rate >60 (60-); Glucose, Blood 240 mg/dL (70-99); Phosphorus, Blood 1.2 mg/dL (2.5-4.9); Potassium, Blood 3.6 mmol/L (3.5-5.5); Sodium, Blood 135 mmol/L (136-145)
--- NOTE | 2020-08-07 17:28 | NUR ---
2 units humalog given also pt req for zofran typically giving every 4 hrs no emesis pt also stated she had some burning with urination and stated she took meds last admission for uti and it feels similar talked with pt re being on abx
--- NOTE | 2020-08-08 04:17 | NUR ---
SHIFT SUMMARY PT A/O X4. SBA TO BATHROOM. TOLERATING CLEAR LIQUIDS WITH SOME NAUSEA. MED PER ORDERS. MACHINERY DISMANTLER HAS BEEN IN USE DURING THE NIGHT PATIENT WANTED TO FINISH CURRENT VIAL IN MACHINERY DISMANTLER BEFORE SWITCHING TO IV PUSHES. PT VOIDING, NO BM THIS SHIFT. PT RESTING QUIETLY AT THIS TIME.
[2020-08-08 04:59] LABS: BASOPHILS ABSOLUTE AUTO 0.16 K/mm3 (0.00-0.23); BASOPHILS PERCENT AUTO 1 % (0-2); EOSINOPHILS ABSOLUTE AUTO 0.05 K/mm3 (0.00-0.68); EOSINOPHILS PERCENT AUTO 0 % (0-6); Hematocrit 33.9 % (33.0-51.0); Hemoglobin 11.4 g/dL (11.5-16.0); IMMATURE GRAN ABSOLUTE AUTO 0.56 K/mm3 (0.00-0.10); IMMATURE GRAN PERCENT AUTO 3 % (0-1); LYMPHOCYTES ABSOLUTE AUTO 2.18 K/mm3 (0.84-5.20); LYMPHOCYTES PERCENT AUTO 10 % (21-46); MONOCYTES ABSOLUTE AUTO 2.16 K/mm3 (0.16-1.47); MONOCYTES PERCENT AUTO 10 % (4-13); Mean Corpuscular HGB 29.9 pg (26.0-34.0); Mean Corpuscular HGB Conc 33.6 g/dL (31.5-36.5); Mean Corpuscular Volume 89 fL (80-100); Mean Platelet Volume 9.1 fL (9.1-12.4); NEUTROPHILS ABSOLUTE AUTO 16.19 K/mm3 (1.96-9.15); NEUTROPHILS PERCENT AUTO 76 % (41-73); Platelet Count 395 K/mm3 (150-400); RDW Coefficient Variation 12.6 % (11.7-14.2); RDW Standard Deviation 40.9 fL (35.1-46.3); Red Blood Cell Count 3.81 M/mm3 (3.80-5.20)
[2020-08-08 05:24] LABS: Anion Gap 12 mmol/L (6-16); Blood Urea Nitrogen 3 mg/dL (8-24); Bun/Creatinine Ratio 6.3 (12.0-20.0); CO2, Blood 22 mmol/L (21-32); Calcium, Blood 7.7 mg/dL (8.5-10.1); Chloride, Blood 98 mmol/L (98-108); Creatinine, Blood 0.48 mg/dL (0.40-1.00); Glomerular Filtration Rate >60 (60-); Glucose, Blood 250 mg/dL (70-99); Magnesium, Blood 1.9 mg/dL (1.6-2.4); Phosphorus, Blood 1.3 mg/dL (2.5-4.9); Potassium, Blood 3.1 mmol/L (3.5-5.5); Sodium, Blood 132 mmol/L (136-145)
--- NOTE | 2020-08-08 09:18 | NUR ---
DR BEEN TO SEE PT.
--- NOTE | 2020-08-08 17:00 | NUR ---
SHIFT SUMMARY PT TOLERATING SMALL AMTS OF LIQUID, ALTHOUGH PT REPORTED NAUSEA AFTER WALKING IN HALLWAY THIS AFTERNOON. PT HAD SHOWER TODAY. PT BEEN ASSISTED WITH ADL'S PRN. PT USING [employer] APPR.
--- NOTE | 2020-08-08 22:10 | NUR ---
CALLED HOSPITALIST AT APPROX 2145 REGARDING ELEVATED TEMP, HR, AND WBC. ORDER GIVEN TO INCREASE IV FLUIDS FROM 100/HR TO 150/HR. NO FURTHER ORDERS AT THIS TIME. PT ON TELE. SBA TO BATHROOM.
[2020-08-09 04:34] LABS: BASOPHILS ABSOLUTE AUTO 0.15 K/mm3 (0.00-0.23); BASOPHILS PERCENT AUTO 1 % (0-2); EOSINOPHILS ABSOLUTE AUTO 0.13 K/mm3 (0.00-0.68); EOSINOPHILS PERCENT AUTO 1 % (0-6); Hematocrit 34.7 % (33.0-51.0); Hemoglobin 11.2 g/dL (11.5-16.0); IMMATURE GRAN ABSOLUTE AUTO 1.13 K/mm3 (0.00-0.10); IMMATURE GRAN PERCENT AUTO 5 % (0-1); LYMPHOCYTES ABSOLUTE AUTO 2.36 K/mm3 (0.84-5.20); LYMPHOCYTES PERCENT AUTO 11 % (21-46); MONOCYTES ABSOLUTE AUTO 2.27 K/mm3 (0.16-1.47); MONOCYTES PERCENT AUTO 11 % (4-13); Mean Corpuscular HGB 28.9 pg (26.0-34.0); Mean Corpuscular HGB Conc 32.3 g/dL (31.5-36.5); Mean Corpuscular Volume 89 fL (80-100); Mean Platelet Volume 9.1 fL (9.1-12.4); NEUTROPHILS ABSOLUTE AUTO 15.36 K/mm3 (1.96-9.15); NEUTROPHILS PERCENT AUTO 72 % (41-73); NRBC ABSOLUTE 0.02 K/mm3 (0.00-0.02); NRBC Auto 0.1 /100 WBC (0.0-0.2); Platelet Count 485 K/mm3 (150-400); RDW Coefficient Variation 12.5 % (11.7-14.2); Red Blood Cell Count 3.88 M/mm3 (3.80-5.20)
[2020-08-09 04:49] LABS: Anion Gap 10 mmol/L (6-16); Blood Urea Nitrogen 2 mg/dL (8-24); Bun/Creatinine Ratio 4.4 (12.0-20.0); CO2, Blood 24 mmol/L (21-32); Calcium, Blood 8.7 mg/dL (8.5-10.1); Chloride, Blood 99 mmol/L (98-108); Creatinine, Blood 0.46 mg/dL (0.40-1.00); Glomerular Filtration Rate >60 (60-); Glucose, Blood 224 mg/dL (70-99); Magnesium, Blood 1.8 mg/dL (1.6-2.4); Phosphorus, Blood 1.8 mg/dL (2.5-4.9); Potassium, Blood 3.2 mmol/L (3.5-5.5); Sodium, Blood 133 mmol/L (136-145)
--- NOTE | 2020-08-09 05:19 | NUR ---
SHIFT SUMMARY PT A/O X4. SBA TO BATHROOM FOR CORDS/LINES. TOLERATING CLEAR LIQUIDS AND SOME SNACKS. HOWEVER SHE HAS C/O NAUSEA AND HAS NEEDED NAUSEA MED THROUGHOUT SHIFT. ALSO C/O PAIN AND REQUESTING IV PAIN MED ABOUT EVERY 2-3 HOURS. HR HAS BEEN SINUS TACH DURING THE SHIFT, AVG AROUND 110-120 BUT SPIKES UP TO 140-150 WHEN UP TO BATHROOM. HOSPITALIST WAS NOTIFIED. SEE PREVIOUS NOTE. IV FLUIDS INFUSING T/O SHIFT.
--- NOTE | 2020-08-09 08:29 | NUR ---
PT TO IMAGING. DISCUSSED PT'S VS WITH PERMIT SPECIALIST. LAB WAS HERE WELL. PT FAMILY IN ROOM. PT REPORTS PAIN 6-05/17. REPORTS NAUSEA BETTER AFTER MEDICATION. PT BEEN USING I/S. DISCUSSED ORDERS WITH PT AND PERMIT SPECIALIST.
[2020-08-09 09:08] LABS: Source, Urine Clean Catch
[2020-08-09 09:15] LABS: Bilirubin, Urine Neg (Neg); Blood, Urine Neg (Neg); Glucose Qualitative, Urine 4+ (Neg); Ketones, Urine 4+ (Neg); Leukocyte Esterase, Urine Neg (Neg); Nitrite, Urine Neg (Neg); Protein, Urine 2+ (Neg); Specific Gravity, Urine 1.015 (1.003-1.022); Urobilinogen, Urine NORM (Normal)
[2020-08-09 09:33] LABS: Appearance, Urine Clear (Clear); Bacteria Not Seen /hpf; Color, Urine Yellow (P-Yellow); Red Blood Cells, Urine Not Seen /hpf (0-2); Squamous Epithelial Cells Few /hpf (Few); White Blood Cells, Urine Not Seen /hpf (0-5)
--- NOTE | 2020-08-09 09:38 | NUR ---
DR CAAL HERE TO SEE PTPamela NEGRO IN ROOM.
--- NOTE | 2020-08-09 13:05 | NUR ---
DR CARMONA HERE TO SEE PT. SRUTHI IN ROOM.
--- NOTE | 2020-08-09 13:51 | NUR ---
DR CAAL REPORTS MAY ADD TRYGLICERIDES TO AM LABWORK. LAB NOTIFIED.
[2020-08-09 14:13] LABS: Triglycerides 254 mg/dL (30-140)
--- NOTE | 2020-08-09 14:24 | NUR ---
DR CAAL NOTIFIED OF TRYGLICERIDE LEVEL.
--- NOTE | 2020-08-09 17:06 | NUR ---
SHIFT SUMMARY PT BEEN ASSISTED WITH ADL'S PRN. PT BEEN MED MULT TIMES FOR NAUSEA AND PAIN. PT S/O BEEN IN ROOM MOST OF DAY. MULT DR TO SEE PT INCLUDING CONSULT WITH DR CARMONA. PT AMBULATED SHORT DISTANCES IN HALLWAY THIS AFTERNOON.
[2020-08-10 04:28] LABS: Hematocrit 31.4 % (33.0-51.0); Hemoglobin 10.5 g/dL (11.5-16.0); Mean Corpuscular HGB 29.5 pg (26.0-34.0); Mean Corpuscular HGB Conc 33.4 g/dL (31.5-36.5); Mean Corpuscular Volume 88 fL (80-100); Mean Platelet Volume 9.1 fL (9.1-12.4); NRBC ABSOLUTE 0.02 K/mm3 (0.00-0.02); NRBC Auto 0.1 /100 WBC (0.0-0.2); Platelet Count 533 K/mm3 (150-400); RDW Coefficient Variation 12.5 % (11.7-14.2); RDW Standard Deviation 40.9 fL (35.1-46.3); Red Blood Cell Count 3.56 M/mm3 (3.80-5.20); White Blood Cell Count 27.04 K/mm3 (4.00-11.30)
[2020-08-10 04:50] LABS: Alanine Aminotransfer (ALT/SGP 33 U/L (12-78); Albumin/Globulin Ratio 0.4 (0.8-1.8); Alk Phos 116 U/L (50-136); Anion Gap 10 mmol/L (6-16); Aspartate Aminotrans (AST/SGOT 43 U/L (12-37); Bilirubin, Total 0.5 mg/dL (0.1-1.0); Blood Urea Nitrogen 2 mg/dL (8-24); Bun/Creatinine Ratio 3.8 (12.0-20.0); CO2, Blood 26 mmol/L (21-32); Calcium, Blood 8.8 mg/dL (8.5-10.1); Chloride, Blood 98 mmol/L (98-108); Creatinine, Blood 0.52 mg/dL (0.40-1.00); Globulin, Blood 4.8 g/dL (2.2-4.0); Glomerular Filtration Rate >60 (60-); Glucose, Blood 165 mg/dL (70-99); Magnesium, Blood 1.6 mg/dL (1.6-2.4); Phosphorus, Blood 2.4 mg/dL (2.5-4.9); Sodium, Blood 134 mmol/L (136-145); Total Protein, Blood 6.8 g/dL (6.4-8.2)
[2020-08-10 05:28] LABS: BAND PERCENT MAN 9 % (0-8); BASOPHILS PERCENT MAN 0 % (0-2); EOSINOPHILS PERCENT MAN 0 % (0-6); LYMPHOCYTES ABSOLUTE MAN 2.43 K/mm3 (0.84-5.20); LYMPHOCYTES PERCENT MAN 9 % (21-46); METAMYELOCYTE ABSOLUTE MAN 0.81 K/mm3 (0.00-0.00); METAMYELOCYTE PERCENT MAN 3 % (0-0); MONOCYTES PERCENT MAN 10 % (4-13); NEUTROPHILS ABSOLUTE MAN 21.09 K/mm3 (1.96-9.15); SEG NEUTROPHILS PERCENT MAN 69 % (41-73); TOTAL CELLS COUNTED 100
--- NOTE | 2020-08-10 05:30 | NUR ---
SHIFT SUMMARY. ASSUMED CARE AT 1900. THRU NOC PAIN MEDS AND MEDS FOR NAUSEA REQUSTED AND EVALUATED FOR NEED. VS REVIEWED W/ THESE MEDS AND BP WNL . AWARE OF CHANGE TO ICE AND H2O ONLY. AND TAKEN. W/O VOMITING. ONLY MILD QUEEZINESS OF STOMCH AND MEDS TO COVER. TEMP UP EARLY ON AND COOLING MEASURES USED. ST ALL SHIFT . 110-120'S AVERAGE. IS ENCOURAGED CONSTANTLY. ONLY 1000 ML W/ ALL THE EFFORT. VERY POOR AIR EXCHANGE IN BASES. NO COUGH. WALKED IN THE OSBORN 3 LONG WALKS TONIGHT.
--- NOTE | 2020-08-10 18:29 | NUR ---
SHIFT SUMMARY PT AOX4. PT HAS BEEN CONSISTENTLY C/O OF PAIN IN ABD AREA. PAIN MED ADMINISTERED ALMOST EVERY 2-3 HR FOR DILAUDID 1MG TO MANAGE PAIN AND INTERMITTNT NAUSEA MEDICATION WELL. PT HAS MILD FEVER AND MILD ELEVATION OF BP. CBG LEVEL AT 213, GIVEN 5 UNITS OF HUMALOG. PT TOLERATING CLEAR LIQ DIET TODAY DENIES NAUSEA AFTER MEAL. STILL ON TELE AT SINUS TACHY AT 114. PT C/O URGENCY AND DYSURIA WHEN URINATING. SHE HAS BEEN PASSING FLATUS DENIES BM. LABS- POTASSIUM LEVEL AT 3.0, ADMINISTERED IV KCL AND K PHOSPATE AND LACT RINGER. PT ALWAYS HAS BEEN AMBULATING AT THE HALLWAY X 3 WITH SIGNIFICANT OTHER. SHE ALSO C/O OF PAIN AND SENSITIVITY ON IV SITE (KEKE). NO FILTRATION, IV IS PATENT.
--- NOTE | 2020-08-10 19:36 | NUR ---
INCREASE HR PT HAS AN ELEVATED HEART RATE OF 115-122 THROUGHOUT THE DAY. WAS NOTIFIED. PT DENIES SOB AT REST AND WITH ACTIVITY, DENIES CHEST PAIN, AND DENIES DIZZINESS.
[2020-08-11 04:03] LABS: EOSINOPHILS ABSOLUTE AUTO 0.16 K/mm3 (0.00-0.68); EOSINOPHILS PERCENT AUTO 1 % (0-6); Hematocrit 30.9 % (33.0-51.0); Hemoglobin 10.3 g/dL (11.5-16.0); IMMATURE GRAN ABSOLUTE AUTO 1.23 K/mm3 (0.00-0.10); IMMATURE GRAN PERCENT AUTO 5 % (0-1); LYMPHOCYTES ABSOLUTE AUTO 2.79 K/mm3 (0.84-5.20); LYMPHOCYTES PERCENT AUTO 11 % (21-46); MONOCYTES ABSOLUTE AUTO 1.83 K/mm3 (0.16-1.47); MONOCYTES PERCENT AUTO 7 % (4-13); Mean Corpuscular HGB 29.8 pg (26.0-34.0); Mean Corpuscular HGB Conc 33.3 g/dL (31.5-36.5); Mean Corpuscular Volume 89 fL (80-100); Mean Platelet Volume 9.1 fL (9.1-12.4); NEUTROPHILS ABSOLUTE AUTO 20.01 K/mm3 (1.96-9.15); NEUTROPHILS PERCENT AUTO 77 % (41-73); Platelet Count 558 K/mm3 (150-400); RDW Coefficient Variation 12.7 % (11.7-14.2); RDW Standard Deviation 41.4 fL (35.1-46.3); Red Blood Cell Count 3.46 M/mm3 (3.80-5.20); White Blood Cell Count 26.07 K/mm3 (4.00-11.30)
[2020-08-11 04:05] LABS: BASOPHILS ABSOLUTE AUTO 0.05 K/mm3 (0.00-0.23); BASOPHILS PERCENT AUTO 0 % (0-2)
[2020-08-11 04:25] LABS: BAND PERCENT MAN 1 % (0-8); BASOPHILS ABSOLUTE MAN 0.26 K/mm3 (0.00-0.23); BASOPHILS PERCENT MAN 1 % (0-2); EOSINOPHILS PERCENT MAN 0 % (0-6); LYMPHOCYTES ABSOLUTE MAN 1.56 K/mm3 (0.84-5.20); LYMPHOCYTES PERCENT MAN 6 % (21-46); METAMYELOCYTE ABSOLUTE MAN 0.26 K/mm3 (0.00-0.00); METAMYELOCYTE PERCENT MAN 1 % (0-0); MONOCYTES ABSOLUTE MAN 0.78 K/mm3 (0.16-1.47); MONOCYTES PERCENT MAN 3 % (4-13); SEG NEUTROPHILS PERCENT MAN 88 % (41-73); TOTAL CELLS COUNTED 100
[2020-08-11 04:28] LABS: Alanine Aminotransfer (ALT/SGP 34 U/L (12-78); Albumin, Blood 1.9 g/dL (3.4-5.0); Albumin/Globulin Ratio 0.4 (0.8-1.8); Alk Phos 121 U/L (50-136); Anion Gap 9 mmol/L (6-16); Aspartate Aminotrans (AST/SGOT 39 U/L (12-37); Bilirubin, Total 0.5 mg/dL (0.1-1.0); Blood Urea Nitrogen 4 mg/dL (8-24); Bun/Creatinine Ratio 8.1 (12.0-20.0); CO2, Blood 25 mmol/L (21-32); Calcium, Blood 8.6 mg/dL (8.5-10.1); Chloride, Blood 97 mmol/L (98-108); Globulin, Blood 5.3 g/dL (2.2-4.0); Glomerular Filtration Rate >60 (60-); Glucose, Blood 241 mg/dL (70-99); Potassium, Blood 3.1 mmol/L (3.5-5.5); Sodium, Blood 131 mmol/L (136-145); Total Protein, Blood 7.2 g/dL (6.4-8.2)
--- NOTE | 2020-08-11 05:01 | NUR ---
PT T-MAX 101.2 TYLENOL GIVEN W/NOTED EFFECT; OTHER VSS. PT CONT TO REPORT UPPER ABD PAIN, REP PAIN 8/10, DOWN TO 4/10 AFTER PAIN MEDS. PT ELLA CL PO, CONT TO REPORT MILD NAUSEA, NO EMESIS THIS SHIFT. PT REP PASSING FLATUS, NO BM TONIGHT. URINE APPEARS SLIGHTLY COUDY. PT AMB INDEP IN HALLS, DENIES DIZZINESS WHEN UP.
--- NOTE | 2020-08-11 13:38 | NUR ---
POWERGLIDE ACCESS POWERGLIDE WAS PLACED BY GILBERTO/PRISCILLA. RESUME NS AND POTASSIUM CHLORIDE. PAIN MED ADMINSTER WELL. PT HAS 100.3 FEVER. KEKE IV ACCESS WAS DC'S DUE TO PAIN AND SWELLING.
--- NOTE | 2020-08-11 19:36 | NUR ---
SHIFT SUMMARY PT C/O OF REDNESS, TENDER AND PAINFUL IV SITE ON LEFT UPPER ARM. DC'D THE LEFT ARM IV AND PLACED A POWERGLID ON RIGHT ARM. PT HAS BEEN WALKING AT THE HALLWAY X 3 WITH JAH. SHE CONTINUOUSLY C/O OF PAIN EVERY 2-3 HRS. PAIN MED GIVEN PER MD ORDER. SHE IS ON FULL LIQUID DIET. SHE FELT NAUSEATED IN THE AFTERNOON SHE ATE A PUDDING. ZOFRAN ADMINISTERED VIA IV. POTASSIUM CHLORIDE WAS ALSO ADMINSITERD TODAY.
--- NOTE | 2020-08-12 03:25 | NUR ---
NAUSEA: PT ATTEMPTED TO EAT A YOGURT, BECAME NAUSEOUS AFTER EATING A FEW BITES. ZOFRAN GIVEN PER EMAR, PT REP LESS NAUSEA AFTER MED.
[2020-08-12 04:10] LABS: BASOPHILS ABSOLUTE AUTO 0.08 K/mm3 (0.00-0.23); BASOPHILS PERCENT AUTO 0 % (0-2); EOSINOPHILS ABSOLUTE AUTO 0.11 K/mm3 (0.00-0.68); EOSINOPHILS PERCENT AUTO 0 % (0-6); Hematocrit 30.8 % (33.0-51.0); IMMATURE GRAN ABSOLUTE AUTO 0.83 K/mm3 (0.00-0.10); IMMATURE GRAN PERCENT AUTO 3 % (0-1); LYMPHOCYTES ABSOLUTE AUTO 2.49 K/mm3 (0.84-5.20); LYMPHOCYTES PERCENT AUTO 10 % (21-46); MONOCYTES ABSOLUTE AUTO 1.33 K/mm3 (0.16-1.47); MONOCYTES PERCENT AUTO 5 % (4-13); Mean Corpuscular HGB 29.2 pg (26.0-34.0); Mean Corpuscular HGB Conc 32.5 g/dL (31.5-36.5); Mean Corpuscular Volume 90 fL (80-100); NEUTROPHILS ABSOLUTE AUTO 19.97 K/mm3 (1.96-9.15); NEUTROPHILS PERCENT AUTO 81 % (41-73); Platelet Count 624 K/mm3 (150-400); RDW Coefficient Variation 12.4 % (11.7-14.2); RDW Standard Deviation 40.8 fL (35.1-46.3); Red Blood Cell Count 3.43 M/mm3 (3.80-5.20); White Blood Cell Count 24.81 K/mm3 (4.00-11.30)
[2020-08-12 04:30] LABS: Anion Gap 7 mmol/L (6-16); Blood Urea Nitrogen 3 mg/dL (8-24); Bun/Creatinine Ratio 5.7 (12.0-20.0); CO2, Blood 29 mmol/L (21-32); Calcium, Blood 8.4 mg/dL (8.5-10.1); Chloride, Blood 95 mmol/L (98-108); Creatinine, Blood 0.53 mg/dL (0.40-1.00); Glomerular Filtration Rate >60 (60-); Glucose, Blood 204 mg/dL (70-99); Phosphorus, Blood 2.6 mg/dL (2.5-4.9); Potassium, Blood 3.3 mmol/L (3.5-5.5); Sodium, Blood 131 mmol/L (136-145)
--- NOTE | 2020-08-12 05:11 | NUR ---
SHIFT SUMMARY PANCREATITIS, A/O X4, VSS. REP NAUSEA W/ ORAL INTAKE, MEDICATED PER EMAR, PAIN MANAGED PER EMAR, EDUCATED PT ON IMPORTANCE OF EXCESS NARCOTICS AND ENCOURAGED NON PHARM PAIN MANAGEMENT. VOIDING WELL, AMBULATING INDEPENDENTLY IN ROOM AND HALLWAY. CALL LIGHT IN REACH, WILL CONTINUE TO MONITOR AND REPORT TO ONCOMING DAY RN.
--- NOTE | 2020-08-12 15:06 | NUR ---
Met pt. sitting on a chair by the window and watching TV pt.neal doing fine encouraged pt. and prayed for her .
--- NOTE | 2020-08-12 16:41 | NUR ---
SHIFT SUMMARY PT HAS AMBULATED SEVERAL TIMES IN HALLWAYS. ONLY TAKEN FEW BITES OF EACH MEAL W/ NOTICABLE INCREASE IN LUQ ABD PAIN AFTER THIS. DRINKING WATER AND GATORADE WELL. CALLS FOR PAIN MEDICINE EVERY 2 HOURS. REPORTS PAIN IS SLOWLY GETTING BETTER.
[2020-08-13 05:41] LABS: BASOPHILS ABSOLUTE AUTO 0.07 K/mm3 (0.00-0.23); BASOPHILS PERCENT AUTO 0 % (0-2); EOSINOPHILS ABSOLUTE AUTO 0.17 K/mm3 (0.00-0.68); EOSINOPHILS PERCENT AUTO 1 % (0-6); Hematocrit 32.9 % (33.0-51.0); Hemoglobin 10.6 g/dL (11.5-16.0); IMMATURE GRAN ABSOLUTE AUTO 0.43 K/mm3 (0.00-0.10); IMMATURE GRAN PERCENT AUTO 2 % (0-1); LYMPHOCYTES PERCENT AUTO 13 % (21-46); MONOCYTES ABSOLUTE AUTO 1.07 K/mm3 (0.16-1.47); MONOCYTES PERCENT AUTO 5 % (4-13); Mean Corpuscular HGB Conc 32.2 g/dL (31.5-36.5); Mean Corpuscular Volume 90 fL (80-100); Mean Platelet Volume 8.8 fL (9.1-12.4); NEUTROPHILS ABSOLUTE AUTO 15.74 K/mm3 (1.96-9.15); NEUTROPHILS PERCENT AUTO 78 % (41-73); Platelet Count 693 K/mm3 (150-400); RDW Standard Deviation 39.6 fL (35.1-46.3); Red Blood Cell Count 3.66 M/mm3 (3.80-5.20); White Blood Cell Count 20.18 K/mm3 (4.00-11.30)
[2020-08-13 06:07] LABS: Albumin, Blood 2.2 g/dL (3.4-5.0); Anion Gap 6 mmol/L (6-16); Blood Urea Nitrogen 3 mg/dL (8-24); Bun/Creatinine Ratio 5.4 (12.0-20.0); CO2, Blood 31 mmol/L (21-32); Calcium, Blood 8.7 mg/dL (8.5-10.1); Chloride, Blood 96 mmol/L (98-108); Creatinine, Blood 0.55 mg/dL (0.40-1.00); Glomerular Filtration Rate >60 (60-); Glucose, Blood 219 mg/dL (70-99); Phosphorus, Blood 3.2 mg/dL (2.5-4.9); Potassium, Blood 3.5 mmol/L (3.5-5.5); Sodium, Blood 133 mmol/L (136-145)
--- NOTE | 2020-08-13 06:38 | NUR ---
SHIFT SUMMARY PT A/O X4, IND IN ROOM. HAS AMBULATED HALLWAY MULT TIMES DURING THE SHIFT. TOLERATING FLUIDS WITH OCC. NAUSEA. REQUESTING IV PAIN MED ABOUT EVERY 2 HRS. PT IS VOIDING AND REP PASSING FLATUS. HAS BEEN SINUS TACH DURING THE SHIFT. CBG STABLE OVERNIGHT. NO ACUTE CHANGES.
[2020-08-13] MEDS ORDERED: ONDA4ODT MM (10:51)
[2020-08-13] MEDS ORDERED: GEMF600 PO (10:51)
[2020-08-13] MEDS ORDERED: Percocet 5-3251 EACH PO (10:52)
--- NOTE | 2020-08-13 11:06 | NUR ---
DISCHARGE SUMMARY PT A&OX4, VSS, LEFT FLOOR WITH DC PACKET, ALL PERSONAL POSSESSIONS, TO GO HOME WITH BF. DC INSTRUCTIONS PROVIDED. PT REP UNDERSTANDING THOSE INSTRUCTIONS INCLUDING FU APPT WITH DR CARMONA AND PCP. SCRIPTS FAXED TO [facility] PROVIDED TO PT. [place].
--- NOTE | 2020-08-13 15:41 | NUR ---
Pt. is doing well and is discharged ,prayed for the pt.
--- NOTE | 2020-08-13 15:44 | NUR ---
Pt. is doing fine and may go home today or [facility] pt. all the best while at home
== END 2020-08-13 11:02 | disposition home or self-care (01) | DRG 439 ==
LOC: ER 17:09 → MEDS 21:30 → SURS 21:30 → MEDS 22:56 → ICUE 08-05 08:42 → SURS 08-06 21:13
PROVIDERS: Family Medicine; Internal Medicine; Physician Assistant; ADMIT Internal Medicine
PROC: 3E0234Z Introduction of Serum, Toxoid and Vaccine into Muscle, Percutaneous Approach (ICD-10-PCS; principal; 2020-08-03)
DX: K85.90 Acute pancreatitis without necrosis or infection, unspecified (principal); R65.10 Systemic inflammatory response syndrome (SIRS) of non-infectious origin without acute organ dysfunction; E87.1 Hypo-osmolality and hyponatremia; R18.8 Other ascites; J90 Pleural effusion, not elsewhere classified; I31.3 Pericardial effusion (noninflammatory); Z23 Encounter for immunization; E78.1 Pure hyperglyceridemia; K76.0 Fatty (change of) liver, not elsewhere classified; E11.65 Type 2 diabetes mellitus with hyperglycemia; E87.6 Hypokalemia; E83.39 Other disorders of phosphorus metabolism; D47.3 Essential (hemorrhagic) thrombocythemia; D64.89 Other specified anemias; E66.9 Obesity, unspecified; Z68.32 Body mass index [BMI] 32.0-32.9, adult; Z90.49 Acquired absence of other specified parts of digestive tract; Z79.4 Long term (current) use of insulin
CPT/HCPCS: 36415; 71046; 74176; 74177; 74181; 80053; 80069; 81001; 81025; 82947; 83036; 83605; 83690; 83735; 84100; 84478; 85025; 87040; 87086; 96361; 96374; 96375; 99285-25; A9270; A9270-GY; C1751; J0696; J0780; J1170; J1650; J1815; J2270; J2405; J2550; J3480; J7030; J7042; J7050; J7060; J7120; Q2038; Q9967

== ENCOUNTER 2020-08-21 21:50 | Emergency (ER) | payer OTHER ==
[~2020-08-21] VITALS: Ht 157.5 cm; Wt 83.9 kg
[~2020-08-21 21:50] MED LIST changes: +BASAGLAR K100 UNIT/5 SC; +GABA300 PO; +GEMF600 PO; +METF500C PO; +ONDA4ODT MM; +Percocet 5-3251 EACH PO
== END 2020-08-22 00:22 | disposition home or self-care (01) ==
LOC: ER 21:50
DX: E11.40 Type 2 diabetes mellitus with diabetic neuropathy, unspecified (principal); Z79.4 Long term (current) use of insulin; Z79.899 Other long term (current) drug therapy
CPT/HCPCS: 99282; A9270-GY

== ENCOUNTER → 2021-07-03 | Outpatient (CLI) | payer OTHER | END | disposition home or self-care (01) | LOC: LAB SHORT 12:00 → LAB 12:00 | PROVIDERS: Obstetrics & Gynecology | DX: Z01.419 Encounter for gynecological examination (general) (routine) without abnormal findings (principal) | CPT/HCPCS: G0123 ==

== ENCOUNTER → 2021-07-19 | Outpatient (CLI) | payer OTHER ==
[2021-07-24 08:11] LABS: HSV-1 DNA Positive (Negative); HSV-2 DNA Negative (Negative)
== END | disposition home or self-care (01) ==
LOC: LAB 17:59 → LAB SHORT 17:59
PROVIDERS: Obstetrics & Gynecology
DX: A60.9 Anogenital herpesviral infection, unspecified (principal)
CPT/HCPCS: 87529

== ENCOUNTER 2021-10-13 22:17 | Emergency (ER) | payer OTHER ==
[~2021-10-13] VITALS: Ht 154.9 cm; Wt 95.2 kg
[2021-10-13 22:58] LABS: Source, Urine Clean Catch
[2021-10-13 23:00] LABS: Bilirubin, Urine Neg (Neg); Blood, Urine Neg (Neg); Glucose Qualitative, Urine 4+ (Neg); Ketones, Urine 1+ (Neg); Leukocyte Esterase, Urine Neg (Neg); Nitrite, Urine Neg (Neg); Protein, Urine Neg (Neg); Urobilinogen, Urine NORM (Normal)
[2021-10-13 23:04] LABS: Appearance, Urine Clear (Clear); Color, Urine Yellow (P-Yellow)
[2021-10-14 02:53] LABS: BASOPHILS ABSOLUTE AUTO 0.09 K/mm3 (0.00-0.23); BASOPHILS PERCENT AUTO 1 % (0-2); EOSINOPHILS PERCENT AUTO 2 % (0-6); Hematocrit 37.9 % (33.0-51.0); Hemoglobin 13.5 g/dL (11.5-16.0); IMMATURE GRAN ABSOLUTE AUTO 0.06 K/mm3 (0.00-0.10); IMMATURE GRAN PERCENT AUTO 0 % (0-1); LYMPHOCYTES ABSOLUTE AUTO 4.89 K/mm3 (0.84-5.20); LYMPHOCYTES PERCENT AUTO 29 % (21-46); MONOCYTES ABSOLUTE AUTO 0.92 K/mm3 (0.16-1.47); MONOCYTES PERCENT AUTO 5 % (4-13); Mean Corpuscular HGB 30.5 pg (26.0-34.0); Mean Corpuscular HGB Conc 35.6 g/dL (31.5-36.5); Mean Corpuscular Volume 86 fL (80-100); NEUTROPHILS ABSOLUTE AUTO 10.63 K/mm3 (1.96-9.15); NEUTROPHILS PERCENT AUTO 63 % (41-73); Platelet Count 531 K/mm3 (150-400); RDW Coefficient Variation 11.9 % (11.7-14.2); Red Blood Cell Count 4.43 M/mm3 (3.80-5.20); White Blood Cell Count 16.89 K/mm3 (4.00-11.30)
[2021-10-14 03:33] LABS: Alanine Aminotransfer (ALT/SGP 49 U/L (12-78); Albumin, Blood 3.8 g/dL (3.4-5.0); Alk Phos 51 U/L (50-136); Anion Gap 9 mmol/L (6-16); Aspartate Aminotrans (AST/SGOT 29 U/L (12-37); Bilirubin, Total 0.2 mg/dL (0.1-1.0); Blood Urea Nitrogen 22 mg/dL (8-24); Bun/Creatinine Ratio 35.7 (12.0-20.0); CO2, Blood 28 mmol/L (21-32); Calcium, Blood 9.5 mg/dL (8.5-10.1); Chloride, Blood 99 mmol/L (98-108); Creatinine, Blood 0.62 mg/dL (0.40-1.00); Glomerular Filtration Rate >60 (60-); Glucose, Blood 277 mg/dL (70-99); Potassium, Blood 3.9 mmol/L (3.5-5.5); Sodium, Blood 136 mmol/L (136-145); Total Protein, Blood 7.8 g/dL (6.4-8.2)
== END 2021-10-14 04:41 | disposition home or self-care (01) ==
LOC: ER 22:17
PROVIDERS: Physician Assistant
DX: R10.13 Epigastric pain (principal); E11.9 Type 2 diabetes mellitus without complications; Z79.84 Long term (current) use of oral hypoglycemic drugs; Z79.4 Long term (current) use of insulin; Z79.899 Other long term (current) drug therapy
CPT/HCPCS: 80053; 81003; 81025; 83690; 85025; 96374; 96375; 99284; J1885; J7120